=== PATIENT | male | born 1975 | race African-American/Black ===

== ENCOUNTER 2018-07-13 11:26 | Emergency (ER) | payer MEDICAID ==
[~2018-07-13] VITALS: Ht 177.8 cm; Wt 81.6 kg
[~2018-07-13 11:26] MED LIST: BACTRIM DS TAB1 EAC1 ORAL; IBUPROFEN600 MG ORAL; KEFLEX500 MG ORAL
[2018-07-13] MEDS ORDERED: NKM (11:36)
[2018-07-13 11:48] VITALS: BP 115/79
[2018-07-13] MEDS ORDERED: Isovue-300 100ml vial INJ PRN (12:45)
[2018-07-13 13:07] LABS: BASOPHILS % (AUTO) 1.6 % (0.0-2.0); EOSINOPHILS % (AUTO) 0.1 % (0.0-3.0); HEMATOCRIT 44.7 % (42.0-52.0); HEMOGLOBIN 14.4 G/DL (14.2-18.0); LYMPHOCYTES % (AUTO) 22.5 % (20.0-45.0); MEAN CORPUSCULAR VOLUME 76 FL (80-99); MONOCYTES % (AUTO) 11.6 % (1.0-10.0); NEUTROPHILS % (AUTO) 64.2 % (45.0-75.0); PLATELET COUNT 228 K/UL (150-450); RED BLOOD COUNT 5.91 M/UL (4.70-6.10); RED CELL DISTRIBUTION WIDTH 12.1 % (11.6-14.8); WHITE BLOOD COUNT 5.7 K/UL (4.8-10.8)
[2018-07-13 13:13] LABS: ANION GAP 13 mmol/L (5-15); BLOOD UREA NITROGEN 38 mg/dL (7-18); CALCIUM 9.5 MG/DL (8.5-10.1); CARBON DIOXIDE 25 MMOL/L (21-32); CHLORIDE 111 MMOL/L (98-107); CREATININE 1.2 MG/DL (0.55-1.30); POTASSIUM 4.4 MMOL/L (3.5-5.1); SODIUM 149 MMOL/L (136-145)
[2018-07-13 13:18] LABS: ALANINE AMINOTRANSFERASE 13 U/L (12-78); ALBUMIN 4.2 G/DL (3.4-5.0); ALBUMIN/GLOBULIN RATIO 0.9 (1.0-2.7); ALKALINE PHOSPHATASE 69 U/L (46-116); ASPARTATE AMINO TRANSFERASE 18 U/L (15-37); BILIRUBIN,TOTAL 0.9 MG/DL (0.2-1.0)
[2018-07-13 13:58] LABS: APPEARANCE,URINE CLEAR; BILIRUBIN, URINE NEGATIVE (NEGATIVE); GLUCOSE, URINE (UA) NEGATIVE (NEGATIVE); KETONES,URINE 4+ (NEGATIVE); LEUKOCYTE ESTERASE ,URINE NEGATIVE (NEGATIVE); NITRITE,URINE NEGATIVE (NEGATIVE); PH,URINE 6 (4.5-8.0); PROTEIN,URINE 2+ (NEGATIVE); UROBILINOGEN,URINE 4 MG/DL (0.0-1.0)
[2018-07-13 14:00] LABS: COLOR,URINE YELLOW
--- NOTE | 2018-07-13 14:19 | Emergency Room Report ---
History of Present Illness General Chief Complaint: General Complaint Source: Patient, Family Member Present Illness HPI The patient is brought in by his family. As a history of developmental delay. Per report, the patient was at adult daycare and became weak and fell to his knees. Also, he has had nausea and hasn't been eating as much over the past few days. He also reports recurrent diarrhea. He hasn't been drinking much water. He denies pain. He denies headache. He denies fever or chills. He denies chest pain or shortness of breath. He has no other complaints. Allergies: Coded Allergies: NO KNOWN DRUG ALLERGIES (Verified Allergy, Unknown, 06/14/15) Patient History Past Medical History: see triage record, other - Developmental delay, Myasthenia gravis Social History: Denies: smoking, alcohol use, drug use Reviewed Nursing Documentation: PMH: Agreed; PSxH: Agreed Nursing Documentation-PMH Past Medical History: No History, Except For Hx Neurological Problems: Yes - Myastania Gravis in 2006, Developmental disability Review of Systems All Other Systems: negative except mentioned in HPI Physical Exam Vital Signs Date Time Temp Pulse Resp B/P (MAP) Pulse Ox O2 Delivery O2 Flow Rate FiO2 07/13/18 11:30 98.1 92 18 112/77 95 Room Air Sp02 EP Interpretation: reviewed, normal General Appearance: no apparent distress, alert, GCS 15, non-toxic Head: normocephalic, atraumatic Eyes: bilateral eye normal inspection, bilateral eye PERRL ENT: hearing grossly normal, normal pharynx, no angioedema, normal voice Neck: full range of motion, supple/symm/no masses Respiratory: chest non-tender, lungs clear, normal breath sounds, no respiratory distress, no retraction, no accessory muscle use, speaking full sentences Cardiovascular #1: regular rate, rhythm, no edema Gastrointestinal: normal bowel sounds, non tender, soft, non-distended, no guarding, no rebound Rectal: deferred Musculoskeletal: back normal, gait/station normal, normal range of motion, non- tender Neurologic: alert, oriented x3, responsive, motor strength/tone normal, sensory intact, speech normal Psychiatric: memory normal, mood/affect normal, no suicidal/homicidal ideation Skin: normal color, no rash, warm/dry, well hydrated Medical Decision Making Diagnostic Impression: Primary Impression: Gastroenteritis Additional Impressions: Hypernatremia Dehydration ER Course This patient has hypernatremia. I hydrated the patient repeated the chemistry panel and the patient's sodium increased. I will unsure if this is hypovolemic hypernatremia although I suspect that it is. The patient has a history consistent with gastroenteritis. The patient overall is difficult to fully assess given his develop mental delay, however, he did appear comfortable and denied pain. I did not identify an infectious etiology or physical exam findings that require specific imaging. I'm concerned for worsening hypernatremia and dehydration, so I will admit this patient for further IV fluids and further monitoring. Laboratory Tests Test 07/13/18 12:45 07/13/18 13:32 White Blood Count 5.7 K/UL (4.8-10.8) Red Blood Count 5.91 M/UL (4.70-6.10) Hemoglobin 14.4 G/DL (14.2-18.0) Hematocrit 44.7 % (42.0-52.0) Mean Corpuscular Volume 76 FL (80-99) L Mean Corpuscular Hemoglobin 24.3 PG (27.0-31.0) L Mean Corpuscular Hemoglobin Concent 32.1 G/DL (32.0-36.0) Red Cell Distribution Width 12.1 % (11.6-14.8) Platelet Count 228 K/UL (150-450) Mean Platelet Volume 6.7 FL (6.5-10.1) Neutrophils (%) (Auto) 64.2 % (45.0-75.0) Lymphocytes (%) (Auto) 22.5 % (20.0-45.0) Monocytes (%) (Auto) 11.6 % (1.0-10.0) H Eosinophils (%) (Auto) 0.1 % (0.0-3.0) Basophils (%) (Auto) 1.6 % (0.0-2.0) Sodium Level 149 MMOL/L (136-145) H Potassium Level 4.4 MMOL/L (3.5-5.1) Chloride Level 111 MMOL/L (98-107) H Carbon Dioxide Level 25 MMOL/L (21-32) Anion Gap 13 mmol/L (5-15) Blood Urea Nitrogen 38 mg/dL (7-18) H Creatinine 1.2 MG/DL (0.55-1.30) Estimate Glomerular Filtration Rate > 60 mL/min (>60) Glucose Level 88 MG/DL (74-106) Calcium Level 9.5 MG/DL (8.5-10.1) Total Bilirubin 0.9 MG/DL (0.2-1.0) Aspartate Amino Transferase (AST) 18 U/L (15-37) Alanine Aminotransferase (ALT) 13 U/L (12-78) Alkaline Phosphatase 69 U/L (46-116) Total Protein 8.8 G/DL (6.4-8.2) H Albumin 4.2 G/DL (3.4-5.0) Globulin 4.6 g/dL Albumin/Globulin Ratio 0.9 (1.0-2.7) L Lipase 71 U/L (73-393) L Urine Color Yellow Urine Appearance Clear Urine pH 6 (4.5-8.0) Urine Specific [place] 1.020 (1.005-1.035) Urine Protein 2+ (NEGATIVE) H Urine Glucose (UA) Negative (NEGATIVE) Urine Ketones 4+ (NEGATIVE) H Urine Blood Negative (NEGATIVE) Urine Nitrite Negative (NEGATIVE) Urine Bilirubin Negative (NEGATIVE) Urine Urobilinogen 4 MG/DL (0.0-1.0) H Urine Leukocyte Esterase Negative (NEGATIVE) Urine RBC 0-2 /HPF (0 - 0) H Urine WBC 2-4 /HPF (0 - 0) Urine Squamous Epithelial Cells Occasional /LPF Urine Bacteria Few /HPF (NONE) Urine Mucus Moderate /LPF (NONE/OCC) H Last Vital Signs Date Time Temp Pulse Resp B/P (MAP) Pulse Ox O2 Delivery O2 Flow Rate FiO2 07/13/18 11:51 94 18 Room Air 07/13/18 11:48 98.1 115/79 100 Disposition: ADMITTED INPATIENT Condition: Serious Referrals: [facility],REFERRING (PCP) Candy Cotton DO Jul 13, 2018 14:19
[2018-07-13 15:46] LABS: ANION GAP 15 mmol/L (5-15); BLOOD UREA NITROGEN 33 mg/dL (7-18); CALCIUM 8.5 MG/DL (8.5-10.1); CARBON DIOXIDE 23 MMOL/L (21-32); CHLORIDE 114 MMOL/L (98-107); CREATININE 1.1 MG/DL (0.55-1.30); POTASSIUM 3.9 MMOL/L (3.5-5.1); SODIUM 152 MMOL/L (136-145)
[2018-07-13 16:45] VITALS: BP 132/87
[2018-07-13 20:43] VITALS: BP 135/72
== END 2018-07-13 20:43 | disposition other institution (70) ==
LOC: EMR 13:28
DX: K52.9 Noninfective gastroenteritis and colitis, unspecified (principal); E87.0 Hyperosmolality and hypernatremia; E86.0 Dehydration
CPT/HCPCS: 36415; 80048; 80053; 81003; 83690; 85025; 96360; 96361; 99285